=== PATIENT | female | born 1980 | race American Indian/Alaskan Native ===

== ENCOUNTER 2016-11-14 14:52 | Inpatient (IN) | payer MEDICARE ==
--- NOTE | 2016-11-14 16:41 | C.PDOC ---
History Of Present Illness 35 y/o female presents to ED with complaint of increasing right hip pain for 5 days. Patient states pain is worst around the right groin. Notes she is unable to walk due to pain. Patient reports she was evaluated for the same hip pain 4 days ago at [facility], where she had negative CT scan, and was discharged with pain medications. Patient states she has had no relief with Percocet. Patient notes she was evaluated at PMD's office (Dr. Majano) today who sent her to the ER for further evaluation/admission. Denies fall, trauma, back pain, abdominal pain, new weakness or numbness, or other associated symptoms. Time Seen by Provider: 11/14/16 16:06 Chief Complaint (Nursing): Hip Pain History Per: Patient History/Exam Limitations: no limitations Onset/Duration Of Symptoms: Days, Persistent Current Symptoms Are (Timing): Still Present Recent travel outside of the [place]: No - Hip Currently Unable To: Bend Or Move Past Medical History Reviewed: Historical Data, Nursing Documentation, Vital Signs Vital Signs: Last Vital Signs Temp 98.5 F 11/14/16 15:06 Pulse 86 11/14/16 15:06 Resp 20 11/14/16 15:06 BP 124/68 11/14/16 15:06 Pulse Ox 97 11/14/16 16:41 - Medical History PMH: Arthritis (RIGHT KNEE), Asthma Family History: States: Unknown Family Hx - Social History Hx Alcohol Use: No Hx Substance Use: No - Immunization History Hx Tetanus Toxoid Vaccination: No Hx Influenza Vaccination: No Hx Pneumococcal Vaccination: No Review Of Systems Except As Marked, All Systems Reviewed And Found Negative. Gastrointestinal: Negative for: Nausea, Vomiting Musculoskeletal: Positive for: Other (right hip / right groin pain). Negative for: Neck Pain, Back Pain Skin: Negative for: Rash, Bruising Neurological: Negative for: Weakness, Numbness Physical Exam - Physical Exam Appears: Non-toxic, No Acute Distress, Other (morbidly obese) Skin: Normal Color, Warm, Dry Head: Atraumatic, Normacephalic Chest: Symmetrical Cardiovascular: Rhythm Regular Respiratory: Normal Breath Sounds, No Rales, No Rhonchi, No Wheezing Gastrointestinal/Abdominal: Soft, No Tenderness, No Guarding, No Rebound Back: Normal Inspection, No Vertebral Tenderness, No Paraspinal Tenderness Extremity: Tenderness (+tenderness medial right hip and groin), Capillary Refill (< 2 sec. ), No Deformity, No Swelling, Other (+tenderness with external rotation of right hip ) Extremity: Bilateral: Normal Color And Temperature Neurological/Psych: Oriented x3, Normal Speech, Normal Cognition, Normal Motor, Normal Sensation ED Course And Treatment - Laboratory Results Result Diagrams: 11/14/16 17:17 11/14/16 17:17 O2 Sat by Pulse Oximetry: 97 (RA) Pulse Ox Interpretation: Normal Medical Decision Making Medical Decision Making: On re-exam, the patient was unable to ambulate. MRI ordered but the patient does not fit into the MRI scanner. Discussed with Dr. Bryant at 16:35 who suggests MRI and admission. 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 - Scribe Statement The provider has reviewed the documentation as recorded by the Joanna Vieyra All medical record entries made by the Joanna were at my direction and personally dictated by me. I have reviewed the chart and agree that the record accurately reflects my personal performance of the history, physical exam, medical decision making, and the department course for this patient. I have also personally directed, reviewed, and agree with the discharge instructions and disposition.
[2016-11-14] MEDS ORDERED: Dexamethasone 4 mg/1 ml IV STA (17:08)
[2016-11-14] MEDS ORDERED: Lidocaine 5% Patch TD STA (17:09)
[2016-11-14 17:25] LABS: BASO # 0.1 K/uL (0.0-0.2); BASO % 1.6 % (0.0-2.0); EOS # 0.3 K/uL (0.0-0.7); EOS % 3.1 % (0.0-4.0); HEMATOCRIT 33.6 % (34.0-47.0); LYMPH # 2.2 K/uL (1.0-4.3); LYMPH % 27.5 % (20.0-40.0); MEAN CELL VOLUME 70.6 fL (81.0-99.0); MEAN CORPUSCULAR HEMOGLOBIN 21.4 pg (27.0-31.0); MEAN CORPUSCULAR HGB CONC 30.4 g/dL (33.0-37.0); MEAN PLATELET VOLUME 8.3 fL (7.2-11.7); MONO # 0.5 K/uL (0.0-0.8); MONO % 6.3 % (0.0-10.0); RED CELL DISTRIBUTION WIDTH 19.9 % (11.5-14.5); WHITE BLOOD COUNT 8.2 K/uL (4.8-10.8)
[2016-11-14 17:45] LABS: CHLORIDE 100 mmol/L (98-107); POTASSIUM 4.3 mmol/L (3.6-5.2); SODIUM 138 mmol/L (132-148)
[2016-11-14 17:47] LABS: BILIRUBIN,TOTAL 0.6 mg/dL (0.2-1.3); CARBON DIOXIDE 28 mmol/L (22-30); GFR AFRICAN-AMERICAN > 60
[2016-11-14 17:48] LABS: ALB/GLOB RATIO 1.1 (1.0-2.1); ALKALINE PHOSPHATASE 63 U/L (38-126); ALT/SGPT 15 U/L (9-52); AST/SGOT 28 U/L (14-36); BLOOD UREA NITROGEN 14 mg/dL (7-17); CALCIUM 9.1 mg/dl (8.6-10.4); GLUCOSE,RANDOM 101 mg/dL (65-105); TOTAL PROTEIN 8.2 g/dL (6.3-8.3)
[2016-11-14] MEDS ORDERED: Oxycodone/Acetaminophen 5/325 mg Tab PO PRN (19:42)
[2016-11-14] MEDS ORDERED: Morphine 4 MG/ML VIAL ONE (19:57)
[2016-11-14 22:08] LABS: RBC URINE 2 /hpf (0-3); URINE BILIRUBIN NEGATIVE (NEGATIVE); URINE BLOOD NEGATIVE (NEGATIVE); URINE COLOR Yellow (YELLOW); URINE GLUCOSE (UA) NORMAL (Normal); URINE KETONE NEGATIVE (NEGATIVE); URINE LEUKOCYTE ESTERASE NEG Leu/uL (Negative); URINE PROTEIN NEGATIVE (NEGATIVE); URINE UROBILINOGEN NORMAL mg/dL (0.2-1.0); WBC URINE 1 /hpf (0-5)
[2016-11-15 10:30] VITALS: RESP 20
[2016-11-15] MEDS: Enoxaparin 40 mg Syringe SC SCH (10:47)
[2016-11-15] MEDS: Pantoprazole 40 mg EC Tab PO SCH (10:48)
--- NOTE | 2016-11-15 14:19 | RAD ---
PROCEDURE: Right Hip Radiographs. HISTORY: hip pain and difficulty walking COMPARISON: None. FINDINGS: BONES: Normal. No fracture. JOINTS: Normal. SOFT TISSUES: Normal. OTHER FINDINGS: None. IMPRESSION: No evidence of acute fracture or dislocation.
--- NOTE | 2016-11-16 07:43 | HP ---
The patient is a 35-year-old female with a history of asthma. The patient came to the Emergency Room sent by Dr. Majano, his primary physician, because the patient was complaining of severe pain to the right hip and so the patient went there first to [facility] and had received medicat ion and discharged, but however, the patient is still having severe pain and not able to walk. So th e patient came back to [facility] for evaluation and the patient was admitted. ALLERGIES: THE PATIENT IS STATING ALLERGY TO NSAIDS. SOCIAL HISTORY: The patient is single, has no children, lives alone. FAMILY HISTORY: No inherited disease. REVIEW OF SYSTEMS: RESPIRATORY: The patient had some shortness of breath at time and no coughing. CARDIOVASCULAR: No chest pain. GASTROINTESTINAL: No nausea, no vomiting. GENITOURINARY: No dysuria. NEUROLOGIC: The patient is complaining of severe pain to the right hip and with difficulty wal eder. PHYSICAL EXAMINATION: GENERAL: The patient is alert, awake, and oriented x 3 and has a blood pressure of 133/78, pulse 66, respiration of 20, temperature 97.6. The patient is morbidly obese. The head is normocephalic and atraumatic. LUNGS: There are some slight history wheezing. HEART: Regular rate and rhythm. No . ABDOMEN: Morbidly obese and no tenderness and there is no palpable mass in the groin in the inguinal canal, both sides palpated and there is no weakness in the abdominal wall in the inguinal area. EXTREMITIES: There is marked lymphedema on both sides of the aspect of the hip and also there is tenderness to the right hip area, increased in palpation and flexion and extension. There is thic kening of the skin of the lower extremity and some mild tenderness at the calf. LABORATORY DATA: The patient had some blood tests done. The WBC is 8.2, hemoglobin 10.2, hematocrit 33.6, and platelets 319. Chemistry: Sodium 138, potassium 4.3, chloride 100, bicarbonate is 28, BU N 14, creatinine 0.7, calcium 9.1, AST 28, ALT 15, alkaline phosphatase is 63, albumin 4.2 and globul in 4. The hCG is negative. The urine is clear. So, the patient as I mentioned had a previous CAT s can of the hip at [facility] and otherwise negative. IMPRESSION: So, the impression is severe right hip pain with severe gait dysfunction and morbid obes ity, asthma. So the patient will be put on medication and also physical therapy and we will consider x-ray of the hip and also orthopedic evaluation if needed. The case was seen and reviewed with Katerina Wood, the nurse practitioner, who assisted me through the history and physical. Ger Bryant MD cc: [id number] TT: 11/15/2016 19:29:08 wv 11/16/2016 06:41:44
[2016-11-16 07:46] LABS: HEMATOCRIT 30.8 % (34.0-47.0); MEAN CELL VOLUME 70.3 fL (81.0-99.0); MEAN CORPUSCULAR HEMOGLOBIN 21.4 pg (27.0-31.0); MEAN CORPUSCULAR HGB CONC 30.5 g/dL (33.0-37.0); MEAN PLATELET VOLUME 9.1 fL (7.2-11.7); RED CELL DISTRIBUTION WIDTH 19.7 % (11.5-14.5)
[2016-11-16 08:35] LABS: CHLORIDE 101 mmol/L (98-107)
[2016-11-16 08:36] LABS: POTASSIUM 3.6 mmol/L (3.6-5.2); SODIUM 137 mmol/L (132-148)
[2016-11-16 08:38] LABS: GFR AFRICAN-AMERICAN > 60
[2016-11-16 08:39] LABS: BLOOD UREA NITROGEN 18 mg/dL (7-17); CALCIUM 8.2 mg/dl (8.6-10.4); CARBON DIOXIDE 28 mmol/L (22-30); GLUCOSE,RANDOM 84 mg/dL (65-105)
[2016-11-16] MEDS: Enoxaparin 40 mg Syringe SC SCH (11:46)
[2016-11-16] MEDS: Pantoprazole 40 mg EC Tab PO SCH (11:47)
--- NOTE | 2016-11-16 15:15 | CP.PCM.PN ---
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 Bryant, states feels little better still c/o R leg pain and groin pain , denies any chest pain sob, N/V duplex scan- negative cxr- negative for fracture and disclocation Pt referred to TCU for acute rehab and patient declined and wants to go home with home PT and home care CM arranged home PT/ VNA service Discharge plan discussed with patient , who understands and agree with plan Objective - Vital Signs/Intake and Output Vital Signs (last 24 hours): Temp Pulse Resp BP Pulse Ox 98.3 F 63 20 117/75 97 11/16/16 07:39 11/16/16 07:39 11/16/16 07:39 11/16/16 07:39 11/16/16 07:39 Intake and Output: 11/16/16 11/16/16 06:59 18:59 Intake Total 650 Balance 650 - Medications Medications: Current Medications Acetaminophen (Tylenol 325mg Tab) 650 mg PO Q6 PRN PRN Reason: Headache Last Admin: 11/15/16 22:17 Dose: 650 mg Baclofen (Lioresal) 10 mg PO DAILY [facility] Last Admin: 11/16/16 11:46 Dose: Not Given Enoxaparin Sodium (Lovenox) 40 mg SC DAILY [facility] Last Admin: 11/16/16 11:46 Dose: Not Given Oxycodone/Acetaminophen (Percocet 5/325 Mg Tab) 1 tab PO Q6H PRN PRN Reason: joint pain Stop: 11/17/16 19:43 Last Admin: 11/16/16 03:35 Dose: 1 tab Pantoprazole Sodium (Protonix Ec Tab) 40 mg PO DAILY [facility] Last Admin: 11/16/16 11:47 Dose: Not Given Prednisone (Prednisone Tab) 10 mg PO Q8H [facility] Last Admin: 11/16/16 11:47 Dose: Not Given - Labs Labs: 11/16/16 07:33 11/16/16 07:33
--- NOTE | 2016-11-16 15:19 | VASCLAB ---
PROCEDURE: Lower Extremity Venous Duplex Exam. HISTORY: Leg sweling, DVT PRIORS: None. TECHNIQUE: Bilateral common femoral, femoral, popliteal and posterior tibial, peroneal and great saphenous veins were evaluated. Flow was assessed with color Doppler, compressibility, assessment of phasic flow and augmentation response. Report prepared by Dajuan Hernandez, TERESSA, RVT FINDINGS: RIGHT: 1. Common Femoral Vein: 1.1. Compressibility - Fully compressible: Thrombus - None : Flow - Phasic: Augmentation -Normal: Reflux - None. 2. Femoral Vein: 2.1. Compressibility - Fully compressible: Thrombus - None : Flow - Phasic: Augmentation -Normal: Reflux - None. 3. Popliteal Vein: 3.1. Compressibility - Fully compressible: Thrombus - None : Flow - Phasic: Augmentation -Normal: Reflux - None. 4. Posterior Tibial Vein: 4.1. Compressibility - Fully compressible: Thrombus - None: Flow - Phasic: Augmentation -Normal: Reflux - None. 5. Peroneal Vein: 5.1. Compressibility - Fully compressible: Thrombus - None: Flow - Phasic: Augmentation -Normal: Reflux - None. 6. Great Saphenous Vein: 6.1. Compressibility - Fully compressible: Thrombus - None: Flow - Phasic: Augmentation - Normal: Reflux - None. LEFT: 1. Common Femoral Vein: 1.1. Compressibility - Fully compressible: Thrombus - None: Flow - Phasic: Augmentation -Normal: Reflux - None. 2. Femoral Vein: 2.1. Compressibility - Fully compressible: Thrombus - None: Flow - Phasic: Augmentation -Normal: Reflux - None. 3. Popliteal Vein: 3.1. Compressibility - Fully compressible: Thrombus - None : Flow - Phasic: Augmentation -Normal: Reflux - None. 4. Posterior Tibial Vein: 4.1. Compressibility - Fully compressible: Thrombus - None: Flow - Phasic: Augmentation -Normal: Reflux - None. 5. Peroneal Vein: 5.1. Compressibility - Fully compressible: Thrombus - None: Flow - Phasic: Augmentation -Normal: Reflux - None. 6. Great Saphenous Vein: 6.1. Compressibility - Fully compressible: Thrombus - None: Flow - Phasic: Augmentation - Normal: Reflux - None. OTHER FINDINGS: Right: None significant. Left: None significant. IMPRESSION: Right: No evidence of deep or superficial vein thrombosis of the right lower extremity. Normal valve function noted of the right side. Left: No evidence of deep or superficial vein thrombosis of the left lower extremity. Normal valve function noted of the left side.
[2016-11-16 16:54] VITALS: BP 134/88; PULSE 68; TEMP 97.9; O2SAT 100
--- NOTE | 2016-11-16 17:02 | PN ---
DATE: 11/16/2016 SUBJECTIVE: Today, the patient is alert and awake. Admitted to having less pain today to the right g roin. Denied any shortness of breath and no dizziness. some difficulty walking. PHYSICAL EXAMINATION: VITAL SIGNS: The patient has a blood pressure of 117/75, pulse , respirations 20, temperature 98 .3. NECK: The patient is morbidly obese. NECK: Supple. LUNGS: Clear. HEART: Regular rate and rhythm. ABDOMEN: Soft and nontender but morbidly obese. EXTREMITIES: There is bilateral lymphedema to both lower extremities at the level of the thigs and t here is mild tenderness in the right groin and no palpable hernia. Also, there are chronic changes o f the skin of the lower extremities. LABORATORY DATA: The patient had blood test. WBC 7, hemoglobin 9.4, hematocrit 30.8, and platelet i s 265. Chemistry showed sodium 137, potassium , chloride 101, bicarbonate 28, BUN 18, creatini ne is 0.6, and calcium 8.2. The patient also had another test done, the definitive Doppler of the lo wer extremities, and that was negative for thrombosis. PLAN: We are going to plan to the patient subacute need for physical therapy because of her ba geovanna problem and so it was discussed with the patient the poor and also the patient preferred to go home and we have ordered the patient to have home PT and so the case was done and discussed pam Wood, the nurse practitioner. Ger Bryant MD cc: [id number] TT: 11/16/2016 17:01:52 Confirmation # [id number] Dictation # [id number]
== END 2016-11-16 20:46 | disposition home health service (06) | DRG 554 ==
LOC: C.ER 14:52 → C.9E 18:40 → C.3T 22:01 → OBSVTOIN 11-15 11:43
PROVIDERS: ADMIT Specialist; ATTEND Specialist
DX: M16.11 Unilateral primary osteoarthritis, right hip (principal); Z68.44 Body mass index [BMI] 60.0-69.9, adult; M25.551 Pain in right hip; I89.0 Lymphedema, not elsewhere classified; E66.01 Morbid (severe) obesity due to excess calories; J45.909 Unspecified asthma, uncomplicated; M17.11 Unilateral primary osteoarthritis, right knee